=== PATIENT | male | born 1990 | race Hispanic/Latino ===

== ENCOUNTER 2017-09-18 19:19 | Emergency (ER) | payer BC ==
[~2017-09-18] VITALS: Ht 188 cm; Wt 83.9 kg
[2017-09-18] MEDS ORDERED: CYCLOBENZAPRINE HCL 10 MG TAB PO ONE (19:45)
[2017-09-18] MEDS ORDERED: IBUPROFEN 400 MG TAB PO ONE (19:45)
--- NOTE | 2017-09-18 20:41 | Diagnostic Imaging Report ---
Cervical spine complete Indication: Trauma Technique: AP, lateral, odontoid and bilateral oblique views of cervical spine obtained. Comparison: None Findings: Images obtained while in a cervical collar. Cervical vertebral bodies can be visualized to C7. The alignment is anatomic. No prevertebral soft tissue swelling. No disc space narrowing or endplate osteophytic lipping. The facets and spinous processes are normally aligned. Alignment is maintained on the AP view. The lateral masses of C1 are symmetric. The dens is intact. No foraminal narrowing. Skull base and upper chest are unremarkable. IMPRESSION: No cervical fracture or traumatic subluxation. Signed by: Dr. Cheir De León MD on 09/18/2017 8:38 PM
[2017-09-18 20:56] VITALS: BP 120/77
== END 2017-09-18 20:57 | disposition home or self-care (01) ==
LOC: ER 19:19
DX: M54.2 Cervicalgia (principal); S16.1XXA Strain of muscle, fascia and tendon at neck level, initial encounter; V43.52XA Car driver injured in collision with other type car in traffic accident, initial encounter; Y92.488 Other paved roadways as the place of occurrence of the external cause
CPT/HCPCS: 72050; 99284

== ENCOUNTER 2020-06-09 16:28 | Inpatient (IN) | payer SELFPAY ==
[~2020-06-09] VITALS: Ht 188 cm; Wt 83.9 kg
[2020-06-09] MEDS ORDERED: KETOROLAC TROMETHAMINE 30 MG/ML VIAL IV STA (18:42)
[2020-06-09 18:58] LABS: BASOPHILS # (AUTO) 0.1 (0.0-0.1); BASOPHILS % 0.4 % (0.0-1.0); EOSINOPHILS # (AUTO) 0.1 (0.0-0.4); EOSINOPHILS % 0.3 % (0.0-6.0); HEMATOCRIT 44.2 % (38.2-49.6); LYMPHOCYTES # (AUTO) 1.6 (1.0-3.2); LYMPHOCYTES % 6.5 % (18.0-39.1); MEAN CORPUSCULAR HEMOGLOBIN 31.3 pg (28-32); MEAN CORPUSCULAR HGB CONC 33.9 g/dL (31-35); MEAN CORPUSCULAR VOLUME 92.1 fL (81-99); MONOCYTES # (AUTO) 1.9 (0.2-0.8); MONOCYTES % 7.8 % (4.4-11.3); NEUTROPHILS # (AUTO) 20.7 (2.1-6.9); NEUTROPHILS % 84.3 % (38.7-80.0); PLATELET COUNT 325 x10e3/uL (140-360); RED CELL DISTRIBUTION WIDTH 12.6 % (11.7-14.4)
[2020-06-09] MEDS ORDERED: PIPERACILLIN/TAZOBAC 3.375 GM in SODIUM CHLORIDE 0.9% 50ML 50 ML IV ONE (19:00)
[2020-06-09 19:15] LABS: ALANINE AMINOTRANSFERASE 27 IU/L (0-55); ALBUMIN 3.8 g/dL (3.5-5.0); ALBUMIN/GLOBULIN RATIO 0.8 (0.8-2.0); ALKALINE PHOSPHATASE 125 IU/L (40-150); ANION GAP 18.8 mmol/L (8-16); BLOOD UREA NITROGEN 8 mg/dL (7-26); BUN/CREATININE RATIO 10 (6-25); CALCIUM 9.8 mg/dL (8.4-10.2); CARBON DIOXIDE 23 mmol/L (22-29); CHLORIDE 97 mmol/L (98-107); CREATININE, SERUM 0.84 mg/dL (0.72-1.25); EST GLOMERULAR FILTRATION RATE > 60 ML/MIN (60-); GLUCOSE 107 mg/dL (74-118); POTASSIUM 3.8 mmol/L (3.5-5.1); SODIUM 135 mmol/L (136-145)
[2020-06-09] MEDS ORDERED: SODIUM CHLORIDE 0.9% ONE (19:43)
[2020-06-09] MEDS ORDERED: IOPAMIDOL 370 MG/ML 200 ML INFUS..BTL INJ ONE (19:44)
[2020-06-09] MEDS ORDERED: PIPER-TAZ 3.375 GM 50 ML IV SCH (21:15)
[2020-06-09] MEDS ORDERED: ACETAMINOPHEN 325 MG TAB PO PRN (21:15)
[2020-06-09 21:20] VITALS: BP 118/71
[2020-06-09] MEDS: ONDANSETRON HCL INJ 2MG/ML 2ML 2 MG/ML VIAL IV PRN (21:55)
[2020-06-09] MEDS ORDERED: KETOROLAC TROMETHAMINE 30 MG/ML VIAL ONE (21:59)
[2020-06-09] MEDS ORDERED: ONDANSETRON HCL INJ 2MG/ML 2ML 2 MG/ML VIAL ONE (21:59)
[2020-06-09 22:53] VITALS: BP 118/71
[2020-06-09] MEDS: SODIUM CHLORIDE 0.9% 1000ML 1,000 ML IV SCH (23:53)
[2020-06-09] MEDS: PIPERACILLIN/TAZOBAC 3.375 GM in SODIUM CHLORIDE 0.9% 50ML 50 ML IV SCH (23:54)
[2020-06-10] VITALS (8 sets, daily range): BP systolic 98–129; BP diastolic 33–80
[2020-06-10] MEDS ORDERED: VANCOMYCIN 1GM/NS 250 ML 250 ML IV SCH
[2020-06-10] MEDS: VANCOMYCIN 1GM/NS 250 ML 250 ML IV SCH ×3 (00:45→19:44)
[2020-06-10] MEDS: HYDROMORPHONE 1MG/1ML INJ IV PRN ×7 (03:09→23:34)
[2020-06-10] MEDS: SODIUM CHLORIDE 0.9% 1000ML 1,000 ML IV SCH ×3 (05:15→19:44)
[2020-06-10] MEDS: PIPERACILLIN/TAZOBAC 3.375 GM in SODIUM CHLORIDE 0.9% 50ML 50 ML IV SCH ×3 (05:46→17:39)
[2020-06-10 07:25] LABS: BASOPHILS # (AUTO) 0.1 (0.0-0.1); BASOPHILS % 0.3 % (0.0-1.0); EOSINOPHILS # (AUTO) 0.1 (0.0-0.4); EOSINOPHILS % 0.4 % (0.0-6.0); HEMATOCRIT 37.5 % (38.2-49.6); HEMOGLOBIN 12.8 g/dL (14.0-18.0); LYMPHOCYTES # (AUTO) 1.4 (1.0-3.2); LYMPHOCYTES % 6.3 % (18.0-39.1); MEAN CORPUSCULAR HEMOGLOBIN 31.8 pg (28-32); MEAN CORPUSCULAR HGB CONC 34.1 g/dL (31-35); MEAN CORPUSCULAR VOLUME 93.1 fL (81-99); MONOCYTES # (AUTO) 2.3 (0.2-0.8); MONOCYTES % 10.6 % (4.4-11.3); NEUTROPHILS # (AUTO) 17.9 (2.1-6.9); NEUTROPHILS % 81.7 % (38.7-80.0); PLATELET COUNT 280 x10e3/uL (140-360); RED BLOOD COUNT 4.03 x10e6/uL (4.3-5.7); RED CELL DISTRIBUTION WIDTH 12.6 % (11.7-14.4)
[2020-06-10 08:03] LABS: ALANINE AMINOTRANSFERASE 16 IU/L (0-55); ALBUMIN/GLOBULIN RATIO 0.9 (0.8-2.0); ALKALINE PHOSPHATASE 101 IU/L (40-150); ANION GAP 15.6 mmol/L (8-16); BLOOD UREA NITROGEN 11 mg/dL (7-26); BUN/CREATININE RATIO 13 (6-25); CALCIUM 8.7 mg/dL (8.4-10.2); CARBON DIOXIDE 22 mmol/L (22-29); CHLORIDE 101 mmol/L (98-107); CREATININE, SERUM 0.86 mg/dL (0.72-1.25); EST GLOMERULAR FILTRATION RATE > 60 ML/MIN (60-); GLUCOSE 93 mg/dL (74-118); POTASSIUM 3.6 mmol/L (3.5-5.1); SODIUM 135 mmol/L (136-145)
[2020-06-10] MEDS ORDERED: LIDOCAINE HCL 2% 30 ML TUBE ONE (10:30)
[2020-06-10] MEDS ORDERED: BUPIVACAINE 0.5%/EPI 30 ML SDV INJ ONE (10:31)
[2020-06-10] MEDS ORDERED: LIDOCAINE HCL 1% LOCAL INJ 20 ML VIAL ONE (10:31)
[2020-06-10] MEDS ORDERED: LIDOCAINE HCL 2% LOCAL INJ 5 ML SDV VIAL INJ ONE (12:05)
[2020-06-10] MEDS ORDERED: ONDANSETRON HCL INJ 2MG/ML 2ML 2 MG/ML VIAL ONE (12:05)
[2020-06-10] MEDS ORDERED: PROPOFOL IV EMULSION 10 MG/ML 20 ML VIAL ONE (12:05)
[2020-06-10] MEDS ORDERED: DEXAMETHASONE SOD PHOS INJ 4 MG/ML VIAL ONE (12:05)
[2020-06-10] MEDS ORDERED: SEVOFLURANE INHAL SOLN 250 ML PEN BTL ONE (12:05)
[2020-06-10] MEDS ORDERED: KETOROLAC TROMETHAMINE 30 MG/ML VIAL ONE (12:05)
[2020-06-10] MEDS ORDERED: FENTANYL CITRATE/PF 100MCG/2 ML INJ ONE (12:06)
[2020-06-10] MEDS ORDERED: MIDAZOLAM HCL 2 MG/2 ML VIAL ONE (12:06)
[2020-06-10] MEDS: FENTANYL CITRATE/PF 100MCG/2 ML INJ ONE ×2 (12:26→12:42)
[2020-06-10] MEDS ORDERED: PIPERACILLIN/TAZOBAC 3.375 GM VIAL ONE ×3 (12:49→23:34)
[2020-06-10] MEDS ORDERED: SODIUM CHLORIDE 0.9% 50ML 50 ML ONE ×3 (12:49→23:35)
[2020-06-10] MEDS: HYDROCODONE/APAP 5MG-325MG TAB PO PRN ×2 (12:55→18:09)
[2020-06-10 13:42] LABS: LYMPHOCYTES % (MANUAL) 6 % (19-48); MONOCYTES % (MANUAL) 12 % (3.4-9.0); NEUTROPHILS % (MANUAL) 82 % (40-74); PLATELET ESTIMATE ADEQUATE; PLATELET MORPHOLOGY COMMENT NORMAL; RBC MORPHOLOGY COMMENT NORMAL
[2020-06-10] MEDS: ONDANSETRON HCL INJ 2MG/ML 2ML 2 MG/ML VIAL IV PRN (20:20)
[2020-06-11] VITALS (9 sets, daily range): BP systolic 93–123; BP diastolic 58–71
[2020-06-11] MEDS: PIPERACILLIN/TAZOBAC 3.375 GM in SODIUM CHLORIDE 0.9% 50ML 50 ML IV SCH ×4 (00:32→18:16)
[2020-06-11] MEDS: HYDROCODONE/APAP 5MG-325MG TAB PO PRN ×2 (03:31→08:21)
[2020-06-11] MEDS ORDERED: PIPERACILLIN/TAZOBAC 3.375 GM VIAL ONE ×4 (04:48→23:48)
[2020-06-11] MEDS: HYDROMORPHONE 1MG/1ML INJ IV PRN ×3 (06:06→21:02)
[2020-06-11] MEDS: VANCOMYCIN 1GM/NS 250 ML 250 ML IV SCH ×2 (08:20→20:57)
[2020-06-11] MEDS: SODIUM CHLORIDE 0.9% 1000ML 1,000 ML IV SCH (10:32)
[2020-06-11] MEDS ORDERED: SODIUM CHLORIDE 0.9% 50ML 50 ML ONE ×3 (13:08→23:49)
[2020-06-12] VITALS (7 sets, daily range): BP systolic 112–126; BP diastolic 58–68
[2020-06-12] MEDS: PIPERACILLIN/TAZOBAC 3.375 GM in SODIUM CHLORIDE 0.9% 50ML 50 ML IV SCH ×4 (00:05→18:32)
[2020-06-12] MEDS: HYDROMORPHONE 1MG/1ML INJ IV PRN ×6 (00:05→20:15)
[2020-06-12] MEDS: SODIUM CHLORIDE 0.9% 1000ML 1,000 ML IV SCH ×4 (00:05→21:29)
[2020-06-12] MEDS ORDERED: SODIUM CHLORIDE 0.9% 50ML 50 ML ONE ×3 (05:32→19:11)
[2020-06-12] MEDS ORDERED: PIPERACILLIN/TAZOBAC 3.375 GM VIAL ONE ×3 (05:32→19:11)
[2020-06-12] MEDS: VANCOMYCIN 1GM/NS 250 ML 250 ML IV SCH ×2 (08:00→21:29)
[2020-06-12] MEDS: HYDROCODONE/APAP 5MG-325MG TAB PO PRN (21:29)
[2020-06-13] VITALS (8 sets, daily range): BP systolic 114–124; BP diastolic 56–70
[2020-06-13] MEDS ORDERED: PIPERACILLIN/TAZOBAC 3.375 GM VIAL ONE ×4 (00:02→15:28)
[2020-06-13] MEDS ORDERED: SODIUM CHLORIDE 0.9% 50ML 0 ML ONE (00:02)
[2020-06-13] MEDS: HYDROMORPHONE 1MG/1ML INJ IV PRN ×6 (00:03→22:30)
[2020-06-13] MEDS ORDERED: SODIUM CHLORIDE 0.9% 50ML 50 ML ONE ×3 (06:14→15:29)
[2020-06-13] MEDS: HYDROCODONE/APAP 5MG-325MG TAB PO PRN ×3 (06:30→21:00)
[2020-06-13] MEDS: PIPERACILLIN/TAZOBAC 3.375 GM in SODIUM CHLORIDE 0.9% 50ML 50 ML IV SCH ×4 (06:38→11:36)
[2020-06-13] MEDS: VANCOMYCIN 1GM/NS 250 ML 250 ML IV SCH ×2 (08:41→20:33)
[2020-06-13] MEDS: ONDANSETRON HCL INJ 2MG/ML 2ML 2 MG/ML VIAL IV PRN (08:49)
[2020-06-13] MEDS: SODIUM CHLORIDE 0.9% 1000ML 1,000 ML IV SCH ×2 (10:14→23:47)
[2020-06-14] VITALS: BP 113/64
[2020-06-14] MEDS: HYDROMORPHONE 1MG/1ML INJ IV PRN ×3 (01:45→09:24)
[2020-06-14] MEDS: HYDROCODONE/APAP 5MG-325MG TAB PO PRN ×2 (03:54→12:01)
[2020-06-14 04:00] VITALS: BP 112/68
[2020-06-14 08:08] VITALS: BP 119/63
[2020-06-14 08:13] VITALS: BP 119/63
[2020-06-14] MEDS: VANCOMYCIN 1GM/NS 250 ML 250 ML IV SCH (09:24)
[2020-06-14] MEDS: SODIUM CHLORIDE 0.9% 1000ML 1,000 ML IV SCH (09:27)
[2020-06-14] MEDS ORDERED: HYDROCODON-ACE1 EA12 PO (11:25)
[2020-06-14 11:46] VITALS: BP 121/62
[2020-06-14] MEDS ORDERED: ONDANSETRON HCL 4 MG ORAL DISINTEGRATING TAB PO PRN (12:00)
== END 2020-06-14 16:17 | disposition home or self-care (01) | DRG 346 ==
LOC: ER 18:45 → ERHOLD 21:17 → MED/SURG3 23:03
PROVIDERS: ADMIT Surgery; ATTEND Surgery
PROC: 0D9P0ZZ Drainage of Rectum, Open Approach (ICD-10-PCS; principal; 2020-06-10 11:21)
DX: K61.1 Rectal abscess (principal); B95.62 Methicillin resistant Staphylococcus aureus infection as the cause of diseases classified elsewhere; Z20.822 Contact with and (suspected) exposure to COVID-19
CPT/HCPCS: 36415; 74177; 80053; 80202; 83605; 85025; 87040; 87071; 87075; 87186; 87205; 96360; 96361; 99284; J1100; J1170; J1885; J2001; J2250; J2405; J2543; J3010; J3370; J7030; Q9967; U0002

== ENCOUNTER 2021-10-15 14:43 | Inpatient (IN) | payer SELFPAY ==
[~2021-10-15] VITALS: Ht 185.4 cm; Wt 83.9 kg
[~2021-10-15 14:43] MED LIST: HYDROCODON-ACE1 EA12 PO
[2021-10-15] MEDS ORDERED: SODIUM CHLORIDE 0.9% 1000ML 1,000 ML IV STA (16:18)
[2021-10-15] MEDS ORDERED: Morphine 4mg INJECTION 4 MG/ML INJ IV NR (16:45)
[2021-10-15] MEDS ORDERED: ONDANSETRON HCL INJ 2MG/ML 2ML 2 MG/ML VIAL IV NR (16:45)
[2021-10-15 16:47] LABS: BASOPHILS % 0.2 % (0.0-1.0); EOSINOPHILS # (AUTO) 0.1 (0.0-0.4); EOSINOPHILS % 0.5 % (0.0-6.0); HEMATOCRIT 42.6 % (38.2-49.6); HEMOGLOBIN 14.1 g/dL (14.0-18.0); LYMPHOCYTES # (AUTO) 2.5 (1.0-3.2); LYMPHOCYTES % 19.3 % (18.0-39.1); MEAN CORPUSCULAR HEMOGLOBIN 31.5 pg (28-32); MEAN CORPUSCULAR HGB CONC 33.1 g/dL (31-35); MEAN CORPUSCULAR VOLUME 95.3 fL (81-99); MONOCYTES # (AUTO) 0.8 (0.2-0.8); MONOCYTES % 6.1 % (4.4-11.3); NEUTROPHILS # (AUTO) 9.4 (2.1-6.9); NEUTROPHILS % 73.5 % (38.7-80.0); PLATELET COUNT 393 x10e3/uL (140-360); RED BLOOD COUNT 4.47 x10e6/uL (4.3-5.7); RED CELL DISTRIBUTION WIDTH 12.4 % (11.7-14.4)
[2021-10-15 17:07] LABS: ALBUMIN 3.4 g/dL (3.5-5.0); ALBUMIN/GLOBULIN RATIO 0.8 (0.8-2.0); CALCIUM 9.5 mg/dL (8.4-10.2); CREATININE, SERUM 0.83 mg/dL (0.72-1.25)
[2021-10-15] MEDS ORDERED: IOPAMIDOL 370 MG/ML 100 ML INFUS..BTL INJ ONE (17:28)
[2021-10-15] MEDS ORDERED: ACETAMINOPHEN 325 MG TAB PO PRN (18:45)
[2021-10-15] MEDS: SODIUM CHLORIDE 0.9% 1000ML 1,000 ML IV SCH (18:49)
[2021-10-15] MEDS: METRONIDAZOLE 500MG/NS 100ML 100 ML IV SCH (18:49)
[2021-10-15] MEDS ORDERED: KETOROLAC TROMETHAMINE 30 MG/ML VIAL IV STA (19:02)
[2021-10-15] MEDS ORDERED: KETOROLAC TROMETHAMINE 30 MG/ML VIAL ONE (19:11)
[2021-10-15] MEDS ORDERED: HYDRALAZINE HCL 20 MG/ML VIAL IV PRN (21:30)
[2021-10-15] MEDS: FAMOTIDINE 20 MG/2 ML VIAL IV SCH (21:59)
[2021-10-15 22:24] VITALS: BP 103/58
[2021-10-15 22:30] VITALS: BP 103/58
[2021-10-15] MEDS: ONDANSETRON HCL INJ 2MG/ML 2ML 2 MG/ML VIAL IV PRN (22:53)
[2021-10-15] MEDS: Morphine 4mg INJECTION 4 MG/ML INJ IV PRN (22:53)
[2021-10-16] VITALS (11 sets, daily range): BP systolic 88–117; BP diastolic 43–70
[2021-10-16] MEDS: METRONIDAZOLE 500MG/NS 100ML 100 ML IV SCH ×4 (01:02→22:33)
[2021-10-16] MEDS: SODIUM CHLORIDE 0.9% 1000ML 1,000 ML IV SCH ×3 (03:57→17:10)
[2021-10-16] MEDS: Morphine 4mg INJECTION 4 MG/ML INJ IV PRN ×4 (06:10→20:48)
[2021-10-16] MEDS: ONDANSETRON HCL INJ 2MG/ML 2ML 2 MG/ML VIAL IV PRN ×2 (06:10→11:14)
[2021-10-16 06:30] LABS: BASOPHILS # (AUTO) 0.1 (0.0-0.1); BASOPHILS % 0.7 % (0.0-1.0); EOSINOPHILS # (AUTO) 0.1 (0.0-0.4); EOSINOPHILS % 1.3 % (0.0-6.0); HEMOGLOBIN 13.2 g/dL (14.0-18.0); LYMPHOCYTES # (AUTO) 2.4 (1.0-3.2); LYMPHOCYTES % 28.9 % (18.0-39.1); MEAN CORPUSCULAR HEMOGLOBIN 30.8 pg (28-32); MEAN CORPUSCULAR HGB CONC 32.2 g/dL (31-35); MEAN CORPUSCULAR VOLUME 95.8 fL (81-99); MONOCYTES # (AUTO) 0.7 (0.2-0.8); MONOCYTES % 7.9 % (4.4-11.3); NEUTROPHILS % 60.6 % (38.7-80.0); PLATELET COUNT 373 x10e3/uL (140-360); RED BLOOD COUNT 4.28 x10e6/uL (4.3-5.7); RED CELL DISTRIBUTION WIDTH 12.5 % (11.7-14.4)
[2021-10-16 06:53] LABS: ALBUMIN/GLOBULIN RATIO 0.9 (0.8-2.0); CALCIUM 8.5 mg/dL (8.4-10.2); CREATININE, SERUM 0.82 mg/dL (0.72-1.25)
[2021-10-16 06:58] LABS: CHOL/HDL RATIO 4.8 (3.9-4.7); PHOSPHORUS 4.2 MG/DL (2.3-4.7)
[2021-10-16 07:18] LABS: THYROID STIMULATING HORMONE 2.674 uIU/mL (0.350-4.940)
[2021-10-16] MEDS ORDERED: SODIUM CHLORIDE 0.9% 500ML 500 ML IV ONE (08:15)
[2021-10-16] MEDS: FAMOTIDINE 20 MG/2 ML VIAL IV SCH ×2 (09:05→17:09)
[2021-10-16] MEDS ORDERED: KETOROLAC TROMETHAMINE 30 MG/ML VIAL ONE (12:43)
[2021-10-16] MEDS ORDERED: ONDANSETRON HCL INJ 2MG/ML 2ML 2 MG/ML VIAL ONE (12:43)
[2021-10-16] MEDS ORDERED: DEXAMETHASONE SOD PHOS INJ 4 MG/ML SDV ONE (12:43)
[2021-10-16] MEDS ORDERED: PROPOFOL IV EMULSION 10 MG/ML 20 ML VIAL ONE (12:43)
[2021-10-16] MEDS ORDERED: POVIDONE IODINE 0.05% 0.05 % ML PO ONE (12:43)
[2021-10-16] MEDS ORDERED: SEVOFLURANE INHAL SOLN 250 ML PEN BTL ONE (12:43)
[2021-10-16] MEDS ORDERED: LIDOCAINE HCL 2% LOCAL INJ 5 ML SDV VIAL INJ ONE (12:43)
[2021-10-16] MEDS ORDERED: LIDOCAINE HCL 2% JELLY 5 ML TUBE ONE (13:16)
[2021-10-16] MEDS ORDERED: LIDOCAINE 2% /EPINEPHRINE 20 ML SDV INJ ONE (13:16)
[2021-10-16] MEDS ORDERED: BUPIVACAINE HCL 0.25% 10ML MPF VIAL INJ ONE (13:43)
[2021-10-16] MEDS ORDERED: MIDAZOLAM HCL 2 MG/2 ML VIAL ONE (14:02)
[2021-10-16] MEDS ORDERED: FENTANYL CITRATE/PF 100MCG/2 ML INJ ONE (14:02)
[2021-10-16] MEDS ORDERED: HYDROMORPHONE 1MG/1ML INJ ONE (14:17)
[2021-10-17] VITALS (9 sets, daily range): BP systolic 99–109; BP diastolic 53–67
[2021-10-17] MEDS: Morphine 4mg INJECTION 4 MG/ML INJ IV PRN ×6 (01:12→21:43)
[2021-10-17] MEDS: METRONIDAZOLE 500MG/NS 100ML 100 ML IV SCH ×4 (04:07→22:17)
[2021-10-17] MEDS: SODIUM CHLORIDE 0.9% 1000ML 1,000 ML IV SCH ×3 (04:08→17:21)
[2021-10-17 05:20] LABS: BASOPHILS % 0.2 % (0.0-1.0); LYMPHOCYTES # (AUTO) 1.8 (1.0-3.2); LYMPHOCYTES % 15.3 % (18.0-39.1); MEAN CORPUSCULAR HGB CONC 33.3 g/dL (31-35); MONOCYTES # (AUTO) 0.5 (0.2-0.8); MONOCYTES % 4.5 % (4.4-11.3); NEUTROPHILS # (AUTO) 9.2 (2.1-6.9); NEUTROPHILS % 79.4 % (38.7-80.0); PLATELET COUNT 405 x10e3/uL (140-360); RED BLOOD COUNT 3.87 x10e6/uL (4.3-5.7); RED CELL DISTRIBUTION WIDTH 12.2 % (11.7-14.4)
[2021-10-17 05:52] LABS: ALBUMIN 2.8 g/dL (3.5-5.0); ALBUMIN/GLOBULIN RATIO 0.8 (0.8-2.0); ANION GAP 14.8 mmol/L (8-16); CALCIUM 8.2 mg/dL (8.4-10.2); CREATININE, SERUM 0.85 mg/dL (0.72-1.25); POTASSIUM 3.8 mmol/L (3.5-5.1)
[2021-10-17] MEDS: FAMOTIDINE 20 MG/2 ML VIAL IV SCH ×2 (09:28→15:45)
[2021-10-17] MEDS: ONDANSETRON HCL INJ 2MG/ML 2ML 2 MG/ML VIAL IV PRN ×3 (09:29→17:24)
[2021-10-17] MEDS: HYDROCODONE/APAP 7.5MG-325MG 1 EA TAB PO PRN (19:10)
[2021-10-18] VITALS (8 sets, daily range): BP systolic 101–119; BP diastolic 57–87
[2021-10-18] MEDS: Morphine 4mg INJECTION 4 MG/ML INJ IV PRN ×3 (02:29→13:33)
[2021-10-18] MEDS: SODIUM CHLORIDE 0.9% 1000ML 1,000 ML IV SCH ×2 (04:16→12:19)
[2021-10-18] MEDS: METRONIDAZOLE 500MG/NS 100ML 100 ML IV SCH ×2 (04:16→10:39)
[2021-10-18] MEDS: HYDROCODONE/APAP 7.5MG-325MG 1 EA TAB PO PRN (04:38)
[2021-10-18 07:05] LABS: BASOPHILS % 0.4 % (0.0-1.0); EOSINOPHILS # (AUTO) 0.1 (0.0-0.4); HEMATOCRIT 35.1 % (38.2-49.6); HEMOGLOBIN 11.3 g/dL (14.0-18.0); LYMPHOCYTES # (AUTO) 2.7 (1.0-3.2); LYMPHOCYTES % 34.4 % (18.0-39.1); MEAN CORPUSCULAR HEMOGLOBIN 31.3 pg (28-32); MEAN CORPUSCULAR HGB CONC 32.2 g/dL (31-35); MEAN CORPUSCULAR VOLUME 97.2 fL (81-99); MONOCYTES # (AUTO) 0.7 (0.2-0.8); MONOCYTES % 8.6 % (4.4-11.3); NEUTROPHILS # (AUTO) 4.4 (2.1-6.9); PLATELET COUNT 358 x10e3/uL (140-360); RED BLOOD COUNT 3.61 x10e6/uL (4.3-5.7); RED CELL DISTRIBUTION WIDTH 12.5 % (11.7-14.4)
[2021-10-18 07:30] LABS: ANION GAP 11.9 mmol/L (8-16); CREATININE, SERUM 0.89 mg/dL (0.72-1.25); MAGNESIUM 1.9 MG/DL (1.3-2.1); PHOSPHORUS 3.3 MG/DL (2.3-4.7); POTASSIUM 3.9 mmol/L (3.5-5.1)
[2021-10-18] MEDS ORDERED: NEOMYCIN/POLYMYXIN/BACITRACIN 15 GM TUBE TOP SCH (13:00)
[2021-10-18] MEDS ORDERED: DOXYCYCLINE HY100 M3 PO (15:56)
[2021-10-18] MEDS ORDERED: HYDROCODON-ACE1 EA12 PO (15:56)
[2021-10-18] MEDS ORDERED: TYLENOL325 M2 PO (15:56)
[2021-10-18] MEDS ORDERED: FAMOTIDINE20 MG PO (15:56)
[2021-10-18] MEDS ORDERED: TRIPLE ANTIBIOT28 GM TOP (15:56)
[2021-10-18] MEDS ORDERED: METRONIDAZOLE 500 MG TAB PO SCH (17:00)
[2021-10-19] MEDS ORDERED: FAMOTIDINE 20 MG TAB PO SCH (06:00)
== END 2021-10-18 17:53 | disposition home or self-care (01) | DRG 333 ==
LOC: ER 15:06 → ERHOLD 18:36 → MED/SURG 21:50 → MED/SURG2 22:01
PROVIDERS: ADMIT Internal Medicine; ATTEND Internal Medicine
PROC: 0DBP0ZZ Excision of Rectum, Open Approach (ICD-10-PCS; 2021-10-16)
PROC: 0D9P0ZZ Drainage of Rectum, Open Approach (ICD-10-PCS; principal; 2021-10-16 13:12)
DX: K61.1 Rectal abscess (principal); I96 Gangrene, not elsewhere classified; F10.10 Alcohol abuse, uncomplicated; R25.2 Cramp and spasm; K58.8 Other irritable bowel syndrome; F17.200 Nicotine dependence, unspecified, uncomplicated; R59.1 Generalized enlarged lymph nodes; Z20.822 Contact with and (suspected) exposure to COVID-19
CPT/HCPCS: 36415; 74177; 80048; 80053; 80061; 83036; 83735; 84100; 84443; 85025; 87040; 94799; 99284; J1100; J1170; J1885; J2001; J2250; J2270; J2405; J2543; J3010; J7030; Q9967